=== PATIENT | female | born 1950 | race Caucasian/White ===

== ENCOUNTER 2019-03-12 09:47 | Inpatient (IN) | payer BC, OTHER ==
[2019-03-12 10:15] VITALS: BMI 32.8
[2019-03-12] MEDS ORDERED: SODIUM CHLORIDE 1,000 ML IV STA (10:37)
[2019-03-12 11:11] LABS: VENOUS PC02 46.8 mmHg (38-52); VENOUS PH 7.39 (7.31-7.41)
[2019-03-12 11:14] LABS: VENOUS PO2 < 49 mmHg (28-48)
--- NOTE | 2019-03-12 11:15 | PDOC ---
Documentation entered by Servando Styles SCRIBE, acting as scribe for Hu Reynoso MD. Hu Reynoso MD: This documentation has been prepared by the Jensen de jesus Daniel, SCRIBE, under my direction and personally reviewed by me in its entirety. I confirm that the documentation accurately reflects all work, treatment, procedures, and medical decision making performed by me. History of Present Illness - General Stated Complaint: Lightheaded History Source: Patient, Spouse Exam Limitations: No Limitations - History of Present Illness Initial Comments: 03/12/19 10:42 The patient is a 68 year old female with a past medical history of diabetes and HTN here today for evaluation of dizziness, altered mental status, incontinence , and generalized weakness. The patients reports that the patient began to feel room spinning dizziness yesterday and states that it is positional and worse with standing and better with lying down. He also notes that the patient has had trouble standing due to bilateral leg weakness. He also reports that the patient fell from sitting yesterday morning without loss of consciousness or head strike. notes seeing the patients PCP and a specialist yesterdat who gave her bystolic because her BP was high. He also notes that the patient has been nauseous and vomited 5-6 times between yesterday and today that was yellow in color. He reports at baseline the pt is independent in her ADLs, oriented, alert but she has not been herself since yesterday. SHe has no hx similar sxs. Patient denies headache. Denies fever, chills. Denies chest pain, shortness of breath. Denies diarrhea, abdominal pain, LE edema, urinary sxs, rash. Denies back pain, stiff neck PCP: Dr. Corley NIH Stroke Scale - Last Known Well Date/Time & Onset Date Last Known Well: 03/10/19 Time Last Known Well: 23:00 - Initial Evaluation Level of consciousness: Not alert, but arousable with minimal stimulation Ask patient the month and their age: Answers both correctly Ask patient to open & close eyes; make fist and let go: Obeys one correctly Best gaze (horizontal eye movement): Normal Visual field testing: No visual field loss Facial paresis (Show teeth/raise eyebrows/close eyes tight): Normal symmetrical movement Motor Function: Left Arm: Untestable (Joint fused orlimb amputated), explain: ( Pt not cooperative) Motor Function: Right Arm: Normal (extends arm 90 (or 45) degrees for 10 seconds without drift Motor Function: Left Leg: Untestable (Joint fused or limb amputated), explain: (Pt not cooperative) Motor Function: Right Leg: Normal (extends leg 30 degrees for 5 seconds without drift) Limb Ataxia: Untestable (Joint fused or limb amputated), explain: (Pt not cooperative) Sensory(Use pinprick test arms,legs,trunk,face/side to side): Normal Best language (Describe picture, name items, read sentences): No Aphasia Dysarthria (read several words): Normal articulation Extinction and Inattention: No abnormality - Total Score NIH Stroke Scale Score: 2 Past History - Past Medical History Allergies/Adverse Reactions: Allergies Allergy/AdvReac Type Severity Reaction Status Date / Time No Known Allergies Allergy Verified 03/12/19 11:13 Home Medications: Ambulatory Orders Aspirin [ASA -] 81 mg PO DAILY 03/12/19 Glimepiride 4 mg PO BID 03/12/19 Lisinopril 5 mg PO DAILY 03/12/19 Metformin HCl [Glucophage] 500 mg PO DAILY 03/12/19 Nebivolol HCl [Bystolic] 5 mg PO DAILY 03/12/19 Sitagliptin Phos/Metformin HCl [Janumet 50-500 mg Tablet] 1 each PO DAILY Review of Systems - Review of Systems Able to Perform ROS?: Yes Comments:: 03/12/19 10:42 GENERAL/CONSTITUTIONAL: No fever or chills. HEAD, EYES, EARS, NOSE AND THROAT: No change in vision. No ear pain or discharge. No sore throat. GASTROINTESTINAL: +nausea. +vomiting. No diarrhea or constipation. GENITOURINARY: No dysuria, frequency, or change in urination. CARDIOVASCULAR: No chest pain or shortness of breath. RESPIRATORY: No cough, wheezing, or hemoptysis. MUSCULOSKELETAL: No joint or muscle swelling or pain. No neck or back pain. SKIN: No rash NEUROLOGIC: +room spinning dizziness. +bilateral leg weakness. No headache, loss of consciousness, or change in sensation. ENDOCRINE: No increased thirst. No abnormal weight change. HEMATOLOGIC/LYMPHATIC: No anemia, easy bleeding, or history of blood clots. ALLERGIC/IMMUNOLOGIC: No hives or skin allergy. *Physical Exam - Vital Signs Last Vital Signs Temp Pulse Resp BP Pulse Ox 100.5 F H 88 18 199/111 H 94 L 03/12/19 09:50 03/12/19 09:50 03/12/19 09:50 03/12/19 09:50 03/12/19 10:05 - Physical Exam Comments: 03/12/19 10:43 GENERAL: Awake, oriented to name, states year is "19" and location is [facility]. In no acute distress HEAD: No signs of trauma EYES: PERRLA, EOMI, sclera anicteric, conjunctiva clear ENT: Auricles normal inspection, hearing grossly normal, nares patent, oropharynx clear without exudates. Moist mucosa NECK: Normal ROM, supple, no lymphadenopathy, JVD, or masses LUNGS: Breath sounds equal, clear to auscultation bilaterally. No wheezes, and no crackles HEART: Regular rate and rhythm, normal S1 and S2, no murmurs, rubs or gallops ABDOMEN: Soft, nontender, normoactive bowel sounds. No guarding, no rebound. No masses : rectal 100.5, no bleeding EXTREMITIES: Normal range of motion, no edema.No cords, erythema, or tenderness. WWP distally. BACK: No midline spinal tenderness in cervical/thoracic/lumbar region NEUROLOGICAL: +appears confused. Normal speech, cranial nerves intact, not cooperative with neuro exam, +squeezes right hand when asked to squeeze left hand, unable to test strength or sensation. Gait deferred SKIN: +UE skin mottling Heart Score/ECG Review #1 03/12/19 11:11 Twelve-lead EKG was performed and reviewed by me. Normal sinus rhythm, rate 88. Normal axis. No ST elevations or T wave inversions. ED Treatment Course - LABORATORY CBC & Chemistry Diagram: 03/12/19 10:50 03/12/19 10:50 - ADDITIONAL ORDERS Additional order review: Laboratory Results 03/12/19 10:38 POC Glucometer 280 03/12/19 10:38 POC Glucometer 280 - RADIOLOGY Radiology Studies Ordered: Category Date Time Status CERVICAL SPINE CT W/O CONTR [CT] Stat CT Scan 03/12/19 10:[address] WITHOUT CONTRAST [CT] Stat CT Scan 03/12/19 10:37 Ordered CHEST X-RAY PORTABLE* [RAD] Stat Radiology 03/12/19 10:36 Ordered Medical Decision Making - Medical Decision Making 03/12/19 11:11 68-year-old female with a history of hypertension and diabetes presents the emergency department with altered mental status, room spinning dizziness for 2 days. Patient also had a fall yesterday morning. Vitals remarkable for fever to 100.5, elevated BP We will initiate a broad work-up for altered mental status including infectious versus neurologic versus metabolic versus ischemic pathologies. In light of fall yesterday, will also initiate a trauma work-up including CT head and CT cervical spine. Patient's fingerstick is 384, DKA vs non AG hyperglycemia? Plan: labs UA CTH/c-spine CXR IVF tylenol low threshold for empiric abx cvg anticipate admission 03/12/19 11:55 UA consistent with UTI. Patient also with lactic of 2.6. As such patient covered empirically with vancomycin and Zosyn. She is also receiving 1 L of fluids, and hemoglobin is elevated consistent with likely dehydration however, given unknown cardiac history will reassess fluid status after first liter so as not to fluid overload patient. Glucose is elevated, however patient does not have an anion gap. Remaining work-up is pending. 03/12/19 13:07 CT head with possible chronic right frontal infarct. CT C-spine negative for any traumatic injury. Remaining work-up thus far is unremarkable. Concern for acute stroke versus recrudescence of old stroke in the setting of a UTI. Case has been discussed with Dr. fran mccormick who recommends MRI noncontrast , aspirin 325 mg, and Lipitor 80 mg. Hospitalist has been paged at this time for admission, awaiting callback. 03/12/19 13:20 Case has been discussed with Dr. Valencia, patient accepted for admission. Case discussed in detail with admitting physician including history, physical exam and ancillary studies. Admitting physician has assumed care for the patient, will follow all pending diagnostics and will complete the evaluation and treatment. Discharge - Discharge Information Problems reviewed: Yes Clinical Impression/Diagnosis: UTI (urinary tract infection), Altered mental status Condition: Stable - Follow up/Referral Referrals: Roly Saha [Primary Care Provider] - - Patient Discharge Instructions - Post Discharge Activity
[2019-03-12] MEDS ORDERED: ACETAMINOPHEN INJECTION 100 ML IVPB ONE ×2 (11:16→16:22)
[2019-03-12] MEDS ORDERED: ACETAMINOPHEN 1000 MG/100 ML VIAL (NON FORMULARY) IVPB ONE (11:16)
[2019-03-12 11:17] LABS: BASO % 0.3 % (0-2.0); EOS % 0.1 % (0-4.5); HEMATOCRIT 46.9 % (32.4-45.2); HEMOGLOBIN 15.8 GM/dL (10.7-15.3); LYMPH % 10.7 % (8-40); MCH 29.7 pg (25.7-33.7); MCHC 33.6 g/dl (32.0-36.0); MEAN CELL VOLUME 88.3 fl (80-96); MEAN PLT VOLUME 8.6 fl (7.5-11.1); MONO % 3.6 % (3.8-10.2); NEUT % 85.3 % (42.8-82.8); PLATELET COUNT 318 K/MM3 (134-434); RBC 5.31 M/mm3 (3.60-5.2); RDW 13.2 % (11.6-15.6)
[2019-03-12 11:19] LABS: EPI CELLS 0 /HPF (0-5/HPF); HYALINE CASTS 0 /lpf (0-8); URINE APPEARANCE CLEAR; URINE BACTERIA 4559.5 /hpf (NEGATIVE); URINE BILIRUBIN NEGATIVE (NEGATIVE); URINE COLOR YELLOW; URINE GLUCOSE (UA) 3+ (NEGATIVE); URINE KETONE 1+ (NEGATIVE); URINE LEUK ESTERASE NEGATIVE (NEGATIVE); URINE NITRITE NEGATIVE (NEGATIVE); URINE PROTEIN 2+ (NEGATIVE); URINE RBC 1 /hpf (0-4); URINE UROBILINOGEN 0.2 mg/dL (0.2-1.0)
[2019-03-12 11:42] LABS: ALBUMIN 4.6 g/dl (3.4-5.0); BILIRUBIN,TOTAL 0.6 mg/dL (0.2-1); BLOOD UREA NITROGEN 14.5 mg/dL (7-18); CALCIUM 9.8 mg/dL (8.5-10.1); CREATININE 0.9 mg/dL (0.55-1.3); POTASSIUM 4.1 mmol/L (3.5-5.1); TOT PROT 9.3 g/dl (6.4-8.2)
[2019-03-12] MEDS ORDERED: VANCOMYCIN 1,000 MG in DEXTROSE 5%-WATER - 250 ML IVPB ONE (11:53)
[2019-03-12] MEDS ORDERED: PIPERACILLIN/TAZOB 4.5 GM 4.5 GM in DEXTROSE 5%-WATER - 100 ML IVPB ONE (11:53)
[2019-03-12] MEDS ORDERED: VANCOMYCIN 1 GRAM (PRE-DOCKED) 1,000 MG/250 ML BAG IVPB ONE (12:06)
[2019-03-12] MEDS ORDERED: PIPERACILLIN/TAZOB 3.375 GM 3.375 GM/50 ML BAG IVPB ONE (12:06)
[2019-03-12] MEDS ORDERED: PIPERACILLIN/TAZOB 4.5 GM 4.5 GM/100 ML BAG IVPB ONE (12:10)
[2019-03-12 12:22] LABS: INR 0.99 (0.83-1.09)
[2019-03-12 12:35] LABS: PROTHROMBIN TIME (PATIENT) 11.7 SEC (9.7-13.0)
--- NOTE | 2019-03-12 12:46 | EKG ---
Test Reason : Blood Pressure : / mmHG Vent. Rate : 088 BPM Atrial Rate : 088 BPM P-R Int : 160 ms QRS Dur : 086 ms QT Int : 352 ms P-R-T Axes : 068 005 049 degrees QTc Int : 425 ms POOR DATA QUALITY, INTERPRETATION MAY BE ADVERSELY AFFECTED NORMAL SINUS RHYTHM POSSIBLE LEFT ATRIAL ENLARGEMENT SEPTAL INFARCT , AGE UNDETERMINED ABNORMAL ECG NO PREVIOUS ECGS AVAILABLE Confirmed by MOISÉS COWAN, STEPH ([id number]) on 03/12/2019 12:46:41 PM Referred By: Confirmed By:STEPH CURIEL MD
[2019-03-12] MEDS ORDERED: ATORVASTATIN CA 80 MG TABLET (FP) PO ONE (13:10)
[2019-03-12] MEDS ORDERED: ASPIRIN 325 MG TABLET PO ONE (13:10)
[2019-03-12] MEDS ORDERED: ASPIRIN 325 MG ENTERIC COATED TABLET (FP) ONE (13:39)
[2019-03-12] MEDS ORDERED: ATORVASTATIN CA 80 MG TABLET (FP) ONE (13:39)
--- NOTE | 2019-03-12 17:30 | HP ---
Admitting History and Physical - Primary Care Physician PCP: Pedro Valencia - Admission History of Present Illness: 68 year old female with a past medical history of diabetes and HTN here today for evaluation of dizziness, altered mental status, incontinence, and generalized weakness. The patients reports that the patient began to feel room spinning dizziness yesterday and states that it is positional and worse with standing and better with lying down. He also notes that the patient has had trouble standing due to bilateral leg weakness. He also reports that the patient fell from sitting yesterday morning without loss of consciousness or head strike. notes seeing the patients PCP and a specialist yesterdat who gave her bystolic because her BP was high. He also notes that the patient has been nauseous and vomited 5-6 times between yesterday and today that was yellow in color. He reports at baseline the pt is independent in her ADLs, oriented, alert but she has not been herself since yesterday. SHe has no hx similar sxs. - Smoking History Smoking history: Never smoked Have you smoked in the past 12 months: No Home Medications - Allergies Allergies/Adverse Reactions: Allergies Allergy/AdvReac Type Severity Reaction Status Date / Time No Known Allergies Allergy Verified 03/12/19 11:13 - Home Medications Home Medications: Ambulatory Orders Aspirin [ASA -] 81 mg PO DAILY 03/12/19 Glimepiride 4 mg PO BID 03/12/19 Lisinopril 5 mg PO DAILY 03/12/19 Metformin HCl [Glucophage] 500 mg PO DAILY 03/12/19 Sitagliptin Phos/Metformin HCl [Janumet 50-500 mg Tablet] 1 each PO DAILY Cephalexin Monohydrate [Keflex -] 500 mg PO TID #24 capsule 03/14/19 Metoprolol Succinate [Toprol XL -] 25 mg PO DAILY #30 tab.sr.24h 03/15/19 Physical Examination Vital Signs: Vital Signs Temperature 99.1 F 03/12/19 17:14 Pulse Rate 81 03/12/19 17:14 Respiratory Rate 22 H 03/12/19 17:14 Blood Pressure 122/78 03/12/19 17:14 O2 Sat by Pulse Oximetry (%) 97 03/12/19 17:14 Constitutional: Yes: No Distress HENT: Yes: Atraumatic Neck: Yes: Supple Cardiovascular: Yes: Regular Rate and Rhythm Respiratory: Yes: CTA Bilaterally Gastrointestinal: Yes: Normal Bowel Sounds Extremities: Yes: WNL Edema: No Neurological: Yes: Alert Labs: CBC, BMP 03/12/19 10:50 03/12/19 10:50 Imaging - Results X-ray: Report Reviewed Cat Scan: Report Reviewed Ultrasound: Report Reviewed Problem List - Problems (1) Altered mental status Assessment/Plan: much improved Code(s): R41.82 - ALTERED MENTAL STATUS, UNSPECIFIED (2) UTI (urinary tract infection) Assessment/Plan: on abx Code(s): N39.0 - URINARY TRACT INFECTION, SITE NOT SPECIFIED (3) Type 2 diabetes mellitus Assessment/Plan: monitor on meds Code(s): E11.9 - TYPE 2 DIABETES MELLITUS WITHOUT COMPLICATIONS Qualifiers: Diabetes mellitus halfway insulin use: without emt intermediate use Chronic kidney disease stage: stage 2 (mild) (4) Vertigo Assessment/Plan: will get neuro consult mri PT eval Code(s): R42 - DIZZINESS AND GIDDINESS Assessment/Plan Laboratory Tests 03/12/19 03/12/19 03/12/19 10:38 10:50 10:50 WBC RBC Hgb Hct MCV MCH MCHC RDW Plt Count MPV Absolute Neuts (auto) Neutrophils % Lymphocytes % Monocytes % Eosinophils % Basophils % Nucleated RBC % PT with INR 11.70 INR 0.99 PTT (Actin FS) 26.0 VBG pH POC VBG pCO2 POC VBG pO2 VBG HCO3 VBG O2 Sat (Farhat) VBG Base Excess Sodium Potassium Chloride Carbon Dioxide Anion Gap BUN Creatinine Est GFR (CKD-EPI)AfAm Est GFR (CKD-EPI)NonAf POC Glucometer 280 Random Glucose Lactic Acid Calcium Total Bilirubin AST ALT Alkaline Phosphatase Creatine Kinase 52 Troponin I < 0.02 Total Protein Albumin Beta-Hydroxybutyrate Urine Color Urine Appearance Urine pH Ur Specific [place] Urine Protein Urine Glucose (UA) Urine Ketones Urine Blood Urine Nitrite Urine Bilirubin Urine Urobilinogen Ur Leukocyte Esterase Urine RBC (Auto) Urine Casts (Auto) U Epithel Cells (Auto) Urine Bacteria (Auto) 03/12/19 03/12/19 03/12/19 10:50 10:50 10:50 WBC 8.0 RBC 5.31 H Hgb 15.8 H Hct 46.9 H MCV 88.3 MCH 29.7 MCHC 33.6 RDW 13.2 Plt Count 318 MPV 8.6 Absolute Neuts (auto) 6.8 Neutrophils % 85.3 H Lymphocytes % 10.7 Monocytes % 3.6 L Eosinophils % 0.1 Basophils % 0.3 Nucleated RBC % 0 PT with INR INR PTT (Actin FS) VBG pH POC VBG pCO2 POC VBG pO2 VBG HCO3 VBG O2 Sat (Farhat) VBG Base Excess Sodium 132 L Potassium 4.1 Chloride 94 L Carbon Dioxide 30 Anion Gap 8 BUN 14.5 Creatinine 0.9 Est GFR (CKD-EPI)AfAm 75.61 Est GFR (CKD-EPI)NonAf 65.24 POC Glucometer Random Glucose 314 H Lactic Acid Calcium 9.8 Total Bilirubin 0.6 AST 20 ALT 41 Alkaline Phosphatase 79 Creatine Kinase Troponin I Total Protein 9.3 H Albumin 4.6 Beta-Hydroxybutyrate 8.3 H Urine Color Urine Appearance Urine pH Ur Specific [place] Urine Protein Urine Glucose (UA) Urine Ketones Urine Blood Urine Nitrite Urine Bilirubin Urine Urobilinogen Ur Leukocyte Esterase Urine RBC (Auto) Urine Casts (Auto) U Epithel Cells (Auto) Urine Bacteria (Auto) 03/12/19 03/12/19 03/12/19 10:50 10:50 11:02 WBC RBC Hgb Hct MCV MCH MCHC RDW Plt Count MPV Absolute Neuts (auto) Neutrophils % Lymphocytes % Monocytes % Eosinophils % Basophils % Nucleated RBC % PT with INR INR PTT (Actin FS) VBG pH 7.39 POC VBG pCO2 46.8 POC VBG pO2 < 49 H VBG HCO3 27.5 VBG O2 Sat (Farhat) 42.2 L VBG Base Excess 2.2 H Sodium Potassium Chloride Carbon Dioxide Anion Gap BUN Creatinine Est GFR (CKD-EPI)AfAm Est GFR (CKD-EPI)NonAf POC Glucometer Random Glucose Lactic Acid 2.6 H* Calcium Total Bilirubin AST ALT Alkaline Phosphatase Creatine Kinase Troponin I Total Protein Albumin Beta-Hydroxybutyrate Urine Color Yellow Urine Appearance Clear Urine pH 8.0 Ur Specific [place] 1.019 Urine Protein 2+ H Urine Glucose (UA) 3+ H Urine Ketones 1+ H Urine Blood Negative Urine Nitrite Negative Urine Bilirubin Negative Urine Urobilinogen 0.2 Ur Leukocyte Esterase Negative Urine RBC (Auto) 1 Urine Casts (Auto) 0 U Epithel Cells (Auto) 0 Urine Bacteria (Auto) 4559.5 03/12/19 14:35 WBC RBC Hgb Hct MCV MCH MCHC RDW Plt Count MPV Absolute Neuts (auto) Neutrophils % Lymphocytes % Monocytes % Eosinophils % Basophils % Nucleated RBC % PT with INR INR PTT (Actin FS) VBG pH POC VBG pCO2 POC VBG pO2 VBG HCO3 VBG O2 Sat (Farhat) VBG Base Excess Sodium Potassium Chloride Carbon Dioxide Anion Gap BUN Creatinine Est GFR (CKD-EPI)AfAm Est GFR (CKD-EPI)NonAf POC Glucometer Random Glucose Lactic Acid 2.3 H* Calcium Total Bilirubin AST ALT Alkaline Phosphatase Creatine Kinase Troponin I Total Protein Albumin Beta-Hydroxybutyrate Urine Color Urine Appearance Urine pH Ur Specific [place] Urine Protein Urine Glucose (UA) Urine Ketones Urine Blood Urine Nitrite Urine Bilirubin Urine Urobilinogen Ur Leukocyte Esterase Urine RBC (Auto) Urine Casts (Auto) U Epithel Cells (Auto) Urine Bacteria (Auto) Active Medications Generic Name Dose Route Start Last Admin Trade Name Freq PRN Reason Stop Dose Admin Aspirin 81 mg 03/13/19 10:00 Asa - PO DAILY [facility] Glimepiride 4 mg 03/13/19 07:00 Amaryl - PO DAILY@0700 [facility] Heparin Sodium (Porcine) 5,000 unit 03/12/19 22:00 Heparin - SQ BID [facility] Ceftriaxone Sodium 2 gm/ 100 mls @ 100 mls/hr 03/12/19 18:15 03/12/19 19:09 Dextrose IVPB 100 mls/hr DAILY [facility] Administration Protocol Lisinopril 5 mg 03/13/19 10:00 Prinivil PO DAILY [facility] Metformin HCl 500 mg 03/13/19 07:00 Glucophage - PO DAILY@0700 [facility] Sitagliptin Phosphate 50 mg 03/13/19 07:00 Januvia - PO DAILY@0700 [facility] WAS NOT ABLE TO TOLERATE MRI
--- NOTE | 2019-03-12 18:03 | PN ---
Progress Note (short form) - Note Progress Note: ID consult dictated 68 yo female with NIDDM presented to ED with dizziness from home 2 days ago she had elevated BP at home sbp over 200 she fell at home b/c she was dizzy yeterday she went to see her PMD Dr Corley, also saw a tire trucker her lisinopril was doubled and she was prescribed bystolic she also vomited 3 to 4 times yesterday this am she was dizzy and could not walk and was brought to ed no history of fevers or chills at home no travel lives in [place] with her has not had any sick contacts, no recent hospitalizations no recent antibiotics no history of UTI asked to see for fever that occurred in ED patient is alert and oriented to person and date, she thinks she is at [facility]- they spoke about going there this am otherwise following commands and answering questions appropriately she is hungry and wants to eat no headache fever of unclear source with lactic acidosis dizziness with acclerated HTN- r/o cva received vanco/zosyn in ED will continue rocephin scheduled for MRI neurology to see niddm- with elevated glucose per PMD htn- management per pmd f/u cultures Problem List - Problems (1) Dizziness Code(s): R42 - DIZZINESS AND GIDDINESS (2) Fever Code(s): R50.9 - FEVER, UNSPECIFIED (3) Lactic acidosis Code(s): E87.2 - ACIDOSIS (4) UTI (urinary tract infection) Code(s): N39.0 - URINARY TRACT INFECTION, SITE NOT SPECIFIED (5) Hypertensive urgency Code(s): I16.0 - HYPERTENSIVE URGENCY (6) Hyperglycemia due to type 2 diabetes mellitus Code(s): E11.65 - TYPE 2 DIABETES MELLITUS WITH HYPERGLYCEMIA
[2019-03-12] MEDS ORDERED: DEXTROSE 5%-WATER 100 ML IVPB ONE (19:02)
[2019-03-12] MEDS: CEFTRIAXONE 2 GM in DEXTROSE 5%-WATER 100 ML IVPB SCH (19:09)
--- NOTE | 2019-03-12 19:31 | CONS ---
DATE OF CONSULTATION: 03/12/2019 REQUESTED BY: Hospitalist Service This is a 68-year-old female with a past medical history of [id number]-boowrjrow diabetes. This is her first admission to [facility]. She was brought to the emergency room this morning at 10 o'clock by ambulance. Two days ago, her noted that she had very high blood pressure at home. He says that on the monitor, her systolic blood pressure was over 200. She was feeling dizzy with the room spinning and had generalized weakness. He took her to see her doctor yesterday, Dr. Corley on [facility], and she also saw her caser up. Reports that her lisinopril was increased and that she was started on Bystolic. She also had nausea yesterday with vomiting three to four times. There is no history of fever at home, no dysuria, no prior history of urinary tract infection. She has not been sick in the recent past. There is no history of recent hospitalizations. There has been no travel. They live here in [place]. ALLERGIES: She has no known drug allergies. CURRENT MEDICATIONS: Aspirin, glimepiride, lisinopril, metformin, Janumet. She was just started on Bystolic which she states she did not take today. PAST MEDICAL HISTORY: Notable for hypertension and sve-rxbkjtq-sxfwciubs diabetes. PAST SURGICAL HISTORY: Notable for hysterectomy and a hernia repair. SOCIAL HISTORY: No history of cigarettes, alcohol or substance use. She is . She lives with her . She has three daughters and multiple grandchildren. She came [place] at age 20. REVIEW OF SYSTEMS: She denies headaches. She is hungry and is asking to eat. She is appropriate and able to follow commands. She has no shortness of breath. PHYSICAL EXAMINATION: VITALS: Current temperature is 99.1, T-max was 101.8. Her blood pressure is 122/78, respiratory rate is 22, oxygen saturation 97% on room air. HEENT: Normocephalic. Eyes are anicteric. She has dry oral mucosa. NECK: Supple. She has no meningeal signs. LUNGS: Clear to auscultation. HEART: Regular rate and rhythm. ABDOMEN: Soft, nontender. She has no CVA or suprapubic tenderness. EXTREMITIES: No edema. LABS: Notable for a white count of 8, hemoglobin of 15.8, platelets of 318,000. Her BUN and creatinine are 14 and 0.9, normal LFTs with a lactic of 2.6. A urinalysis 4500 bacteria but is leukocyte esterase negative. No micro was done. She has 2+ protein, 3+ glucose, 1+ ketones. Urine and blood cultures were sent. She had a head CT and a CT of the cervical spine without any acute disease. A chest x-ray showed no infiltrate. HOSPITAL COURSE: In the ER, she was given IV fluids. She had blood cultures sent and she was given a dose of vancomycin and Zosyn when she had a fever of 101.8. IN SUMMARY: 1. This is a 68-year-old woman with fever of unclear source with lactic acidosis, dizziness with accelerate hypertension; rule out CVA. She received vancomycin and Zosyn in the ER. We will continue Rocephin as she has no risk factors for MRSA or pseudomonas at this time. She is scheduled for an MRI of her head and neurology is planning to see her. 2. Ees-ahguyts-ltbugqkub diabetes with elevated glucose; management per her PMD. 3. Hypertension. Management per PMD. 4. We will follow up cultures. 5. Further recommendations to follow. LESLY MONTALVO M.D. [id number]
[2019-03-12] MEDS ORDERED: GLIMEPIRIDE 4 MG TABLET (FP) PO SCH (22:00)
[2019-03-12] MEDS: HEPARIN NA (PORCINE) 5,000 UNITS/ML 1ML VIAL SQ SCH (22:17)
--- NOTE | 2019-03-12 22:46 | CON.NEURO ---
Consult Consult Specialty:: NEUROLOGY-JOSEFINA COWAN - History of Present Illness History of Present Illness: 68 year old female with a past medical history of diabetes and HTN here today for evaluation of dizziness, altered mental status, incontinence, and generalized weakness. The patients reports that the patient began to feel room spinning dizziness yesterday and states that it is positional and worse with standing and better with lying down. He also notes that the patient has had trouble standing due to bilateral leg weakness. He also reports that the patient fell from sitting yesterday morning without loss of consciousness or head strike. notes seeing the patients PCP and a specialist yesterdat who gave her bystolic because her BP was high. He also notes that the patient has been nauseous and vomited 5-6 times between yesterday and today that was yellow in color. He reports at baseline the pt is independent in her ADLs, oriented, alert but she has not been herself since yesterday. SHe has no hx similar sxs. -Reports she has no dizziness(describes it as vertigo), denies weakness in both legs, able to ambulate to toilet. - Smoking History Smoking history: Never smoked Have you smoked in the past 12 months: No Home Medications - Allergies Allergies/Adverse Reactions: Allergies Allergy/AdvReac Type Severity Reaction Status Date / Time No Known Allergies Allergy Verified 03/12/19 11:13 - Home Medications Home Medications: Ambulatory Orders Aspirin [ASA -] 81 mg PO DAILY 03/12/19 Glimepiride 4 mg PO BID 03/12/19 Lisinopril 5 mg PO DAILY 03/12/19 Metformin HCl [Glucophage] 500 mg PO DAILY 03/12/19 Nebivolol HCl [Bystolic] 5 mg PO DAILY 03/12/19 Sitagliptin Phos/Metformin HCl [Janumet 50-500 mg Tablet] 1 each PO DAILY Physical Exam-Neuro Vital Signs: Vital Signs Temperature 99.1 F 03/12/19 17:14 Pulse Rate 81 03/12/19 17:14 Respiratory Rate 22 H 03/12/19 17:14 Blood Pressure 122/78 03/12/19 17:14 O2 Sat by Pulse Oximetry (%) 97 03/12/19 17:14 Labs: CBC, BMP 03/12/19 10:50 03/12/19 10:50 INR, PTT INR 0.99 (0.83-1.09) 03/12/19 10:50 - Neuro Exam DTR's: 1+ Left Achilles, 1+ Right Achilles (bilat knees-2+), 2+ Left Bicep, 2+ Right Bicep, 2+ Left Tricep, 2+ Right Tricep, 2+ Left Brachioradialis, 2+ Right Brachioradialis Motor Strength: 4/5: Right Arm, Left Leg (eFFORT RELATED WEAKNESS LIKELY), 5/5: Left Arm, Right Arm Gait: Other (SLOW BUT STEADY) Imaging - Results Cat Scan: Report Reviewed (small right frontal subcort. infarct) Assessment/Plan EPISODIC VERTIGO AND ATAXIA, BOTH RESOLVED, SHE HAS A SMALL RIGHT SUBCORT. INFARCT UPON IMAGING. LIKLEY PERIPHERAL VERTIGO BUT CANNOT EXCLUDE POST.CIRC. EVENT. WOULD ATTEMPT MRI AGAIN WITH LORAZEPAM. CAROTID DOPPLER STUDY.ASA 81MG DAILY
[2019-03-12] MEDS ORDERED: LORazepam 1 MG TABLET PO ONE (22:51)
[2019-03-13] MEDS: sitaGLIPtin PHOSPHATE 50 MG TABLET PO SCH (06:53)
[2019-03-13] MEDS: GLIMEPIRIDE 4 MG TABLET (FP) PO SCH (06:53)
[2019-03-13] MEDS: metFORMIN HCL 500 MG TABLET (FP) PO SCH (06:53)
[2019-03-13 07:38] LABS: BASO % 0.5 % (0-2.0); EOS % 0.8 % (0-4.5); HEMOGLOBIN 14.2 GM/dL (10.7-15.3); LYMPH % 34.8 % (8-40); MCH 30.2 pg (25.7-33.7); MCHC 34.6 g/dl (32.0-36.0); MEAN CELL VOLUME 87.2 fl (80-96); MEAN PLT VOLUME 8.7 fl (7.5-11.1); MONO % 11.7 % (3.8-10.2); NEUT % 52.2 % (42.8-82.8); PLATELET COUNT 295 K/MM3 (134-434); RDW 13.2 % (11.6-15.6); WHITE BLOOD COUNT 8.9 K/mm3 (4.0-10.0)
[2019-03-13 08:36] LABS: ALBUMIN 3.8 g/dl (3.4-5.0); BILIRUBIN,TOTAL 0.6 mg/dL (0.2-1); BLOOD UREA NITROGEN 23.5 mg/dL (7-18); CALCIUM 9.2 mg/dL (8.5-10.1); CREATININE 1.1 mg/dL (0.55-1.3); POTASSIUM 3.6 mmol/L (3.5-5.1); TOT PROT 7.3 g/dl (6.4-8.2)
[2019-03-13] MEDS ORDERED: DEXTROSE 5%-WATER 100 ML IVPB ONE (09:19)
--- NOTE | 2019-03-13 09:51 | CON.CARD ---
Consult Consult Specialty:: Cardiology Referred by:: Pedro Valencia MD Reason for Consultation:: Dizziness, HTN urgency - History of Present Illness Chief Complaint: Dizziness History of Present Illness: 68 yo female with NIDDM presented to ED with dizziness from home, 2 days ago she had elevated BP at home sbp over 200, she fell at home b/c she was positional dizziness with room spinning, nausea, emesis w/o hearing loss or tinnitus, incontinence and bilateral leg weakness, she went to see her PMD Dr Corley of [facility], also saw a audit manager Dr. Ledezma, her lisinopril was doubled and she was prescribed bystolic. She was dizzy and could not walk and was brought to ed. Brain MRI degraded due to motion artifacts due to claustrophobia. - History Source History Provided By: Patient, Family Member Limitations to Obtaining History: No Limitations - Alcohol/Substance Use Hx Alcohol Use: No - Smoking History Smoking history: Never smoked Have you smoked in the past 12 months: No Home Medications - Allergies Allergies/Adverse Reactions: Allergies Allergy/AdvReac Type Severity Reaction Status Date / Time No Known Allergies Allergy Verified 03/12/19 11:13 - Home Medications Home Medications: Ambulatory Orders Aspirin [ASA -] 81 mg PO DAILY 03/12/19 Glimepiride 4 mg PO BID 03/12/19 Lisinopril 5 mg PO DAILY 03/12/19 Metformin HCl [Glucophage] 500 mg PO DAILY 03/12/19 Nebivolol HCl [Bystolic] 5 mg PO DAILY 03/12/19 Sitagliptin Phos/Metformin HCl [Janumet 50-500 mg Tablet] 1 each PO DAILY Review of Systems - Review of Systems Constitutional: reports: Weakness Gastrointestinal: reports: Nausea, Vomiting Neurological: reports: Dizziness Vital Signs: Vital Signs Temperature 98.4 F 03/13/19 06:00 Pulse Rate 68 03/13/19 06:00 Respiratory Rate 20 03/13/19 06:00 Blood Pressure 112/62 03/13/19 06:00 O2 Sat by Pulse Oximetry (%) 95 03/13/19 02:23 Constitutional: Yes: No Distress, Calm Neck: Yes: Supple Respiratory: Yes: Regular, CTA Bilaterally Gastrointestinal: Yes: Soft, Hypoactive Bowel Sounds Cardiovascular: Yes: Regular Rate and Rhythm JVD: No Carotid Bruit: No Heart Sounds: Yes: S1, S2 Edema: No - Other Data Labs, Other Data: CBC, BMP 03/13/19 06:40 03/13/19 06:40 INR, PTT INR 0.99 (0.83-1.09) 03/12/19 10:50 Troponin, BNP 03/12/19 10:50 Troponin I < 0.02 Troponin, BNP 03/12/19 10:50 Troponin I < 0.02 Imaging - Results Chest X-ray: Report Reviewed (NAD) Cat Scan: Report Reviewed (Prob small chronic right frontal subcortical white matter infarct) Problem List - Problems (1) Vertigo Code(s): R42 - DIZZINESS AND GIDDINESS (2) Ataxia Code(s): R27.0 - ATAXIA, UNSPECIFIED (3) Hypertensive urgency Code(s): I16.0 - HYPERTENSIVE URGENCY (4) Type 2 diabetes mellitus Code(s): E11.9 - TYPE 2 DIABETES MELLITUS WITHOUT COMPLICATIONS Qualifiers: Diabetes mellitus fdc insulin use: without fdc use Chronic kidney disease stage: stage 2 (mild) (5) Microalbuminuria due to type 2 diabetes mellitus Code(s): E11.29 - TYPE 2 DIABETES MELLITUS W OTH DIABETIC KIDNEY COMPLICATION; R80.9 - PROTEINURIA, UNSPECIFIED (6) Glycosuria Code(s): R81 - GLYCOSURIA Assessment/Plan 03/12/2019 Cat Scan: Report Reviewed (small right frontal subcort. infarct) 1. Vertigo, ataxia, nausea and emesis suspect peripheral vestibulopathy, r/o posterior circulation stroke 2. Hypertensive urgency 3. Fever 4. Type 2 DM with microalbuminuria and glycosuria P:1. Repeat brain MRI with Ativan, f/u carotid US, carotid dopplers, echo, carbon paste mixer operator r/o PAF 2. Empiric abx per C&S 3. Continue ASA 81 qd, Lisinopril with uptitration as tolerated, check TSH, lipid panel, Ha1c 4. Thank you for consultative opportunity
[2019-03-13] MEDS ORDERED: PATIENT'S OWN MEDICATION (NON-FORMULARY) (Sitagliptin Phos/Metformin Hcl [Janumet 50-500 M PO SCH (10:00)
[2019-03-13] MEDS ORDERED: metFORMIN HCL 500 MG TABLET (FP) PO SCH (10:00)
[2019-03-13] MEDS: LISINOPRIL 5 MG TABLET (FP) PO SCH (10:03)
[2019-03-13] MEDS: HEPARIN NA (PORCINE) 5,000 UNITS/ML 1ML VIAL SQ SCH ×2 (10:03→22:07)
[2019-03-13] MEDS: ASPIRIN 81 MG CHEWABLE TABLETS PO SCH (10:03)
[2019-03-13] MEDS: CEFTRIAXONE 2 GM in DEXTROSE 5%-WATER 100 ML IVPB SCH (10:05)
--- NOTE | 2019-03-13 15:30 | PN ---
Progress Note (short form) - Note Progress Note: clinically improved no complaints sat up in chair eating well Vital Signs Period Temp Pulse Resp BP Sys/Kelley Pulse Ox Last 24 Hr 97.9 F-99.2 F 68-86 18-22 98-134/56-84 95-98 cor-rrr lungs clear abd soft,nt ext no edema CBC, BMP 03/13/19 06:40 03/13/19 06:40 Microbiology 03/12/19 10:50 Blood - Peripheral Venous Blood Culture - Preliminary NO GROWTH OBTAINED AFTER 24 HOURS, INCUBATION TO CONTINUE FOR 4 DAYS. 03/12/19 10:50 Blood - Peripheral Venous Blood Culture - Preliminary NO GROWTH OBTAINED AFTER 24 HOURS, INCUBATION TO CONTINUE FOR 4 DAYS. 03/12/19 11:02 Urine - Urine - Catheterized Urine Culture - Preliminary Lactose Fermenting Neg Bacilli a/p fever of unclear source with lactic acidosis- ?UTI-improved continue rocephin dizziness with acclerated HTN- r/o cva niddm- with elevated glucose per PMD htn- management per pmd f/u cultures d/w patient and at [facility]
--- NOTE | 2019-03-13 15:58 | ECHO ---
Name: TRINIDAD CASTANEDA Exam:Adult Echocardiogram Study Date: 03/13/2019 01:04 PM Age: 68 yrs Reason For Study: HTN URGENCY Height: 63 in Weight: 185 lb BSA: 1.9 m2 MMode/2D Measurements & Calculations IVSd: 0.85 cm Ao root diam: 3.5 cm LVIDd: 4.8 cm LA dimension: 2.7 cm LVIDs: 2.9 cm ACS: 1.8 cm LVPWd: 0.85 cm IVSs: 1.4 cm LVPWs: 1.1 cm EDV(Teich): 109.1 ml ESV(Teich): 32.4 ml Doppler Measurements & Calculations MV E max shira: 38.5 cm/sec Ao V2 max: 97.9 cm/sec MV A max shira: 80.2 cm/sec Ao max P.8 mmHg MV E/A: 0.48 Ao V2 mean: 73.3 cm/sec Ao mean P.4 mmHg Ao V2 VTI: 17.8 cm Med Peak E' Shira: 3.2 cm/sec Med E/e': 12.0 Lat Peak E' Shira: 6.0 cm/sec Lat E/e': 6.4 Left Ventricle The left ventricular size, thickness and function are normal. The left ventricular ejection fraction is normal. Ejection Fraction = 60-65%. The left ventricular wall motion is normal. Right Ventricle The right ventricle is normal in size and function. Atria Normal left and right atrial size and function. Mitral Valve There is no mitral regurgitation noted. Tricuspid Valve There is trace tricuspid regurgitation. There was insufficient TR detected to calculate RV systolic p ressure. Aortic Valve No hemodynamically significant valvular aortic stenosis. No aortic regurgitation is present. Pulmonic Valve There is no pulmonic valvular regurgitation. Great Vessels The aortic root is normal size. Pericardium/Pleura There is no pericardial effusion. Interpretation Summary The left ventricular size, thickness and function are normal The right ventricle is normal in size and function. There is trace tricuspid regurgitation. MD Luke Horvath 03/13/2019 03:57 PM
--- NOTE | 2019-03-13 16:21 | PN ---
Progress Note, Physician - Current Medication List Current Medications: Active Medications Aspirin (Asa -) 81 mg PO DAILY [facility] Last Admin: 03/13/19 10:03 Dose: 81 mg Glimepiride (Amaryl -) 4 mg PO DAILY@0700 [facility] Last Admin: 03/13/19 06:53 Dose: 4 mg Heparin Sodium (Porcine) (Heparin -) 5,000 unit SQ BID [facility] Last Admin: 03/13/19 10:03 Dose: 5,000 unit Ceftriaxone Sodium 2 gm/ (Dextrose) 100 mls @ 100 mls/hr IVPB DAILY [facility]; Protocol Last Admin: 03/13/19 10:05 Dose: 100 mls/hr Lisinopril (Prinivil) 5 mg PO DAILY [facility] Last Admin: 03/13/19 10:03 Dose: 5 mg Metformin HCl (Glucophage -) 500 mg PO DAILY@0700 [facility] Last Admin: 03/13/19 06:53 Dose: 500 mg Sitagliptin Phosphate (Januvia -) 50 mg PO DAILY@0700 [facility] Last Admin: 03/13/19 06:53 Dose: 50 mg - Objective Vital Signs: Vital Signs Temperature 98.8 F 03/13/19 15:23 Pulse Rate 82 03/13/19 15:23 Respiratory Rate 20 03/13/19 15:23 Blood Pressure 134/84 03/13/19 15:23 O2 Sat by Pulse Oximetry (%) 98 03/13/19 09:00 Constitutional: Yes: No Distress HENT: Yes: Atraumatic Neck: Yes: Supple Cardiovascular: Yes: Regular Rate and Rhythm Respiratory: Yes: CTA Bilaterally Gastrointestinal: Yes: Normal Bowel Sounds Extremities: Yes: WNL Edema: No Peripheral Pulses WNL: Yes Neurological: Yes: Alert, Oriented Labs: CBC, BMP 03/13/19 06:40 03/13/19 06:40 INR, PTT INR 0.99 (0.83-1.09) 03/12/19 10:50 Problem List - Problems (1) Altered mental status Assessment/Plan: resolved Code(s): R41.82 - ALTERED MENTAL STATUS, UNSPECIFIED (2) UTI (urinary tract infection) Assessment/Plan: on po abx now Code(s): N39.0 - URINARY TRACT INFECTION, SITE NOT SPECIFIED (3) CVA (cerebral vascular accident) Assessment/Plan: small R subcortical infarct Code(s): I63.9 - CEREBRAL INFARCTION, UNSPECIFIED
[2019-03-14] MEDS: sitaGLIPtin PHOSPHATE 50 MG TABLET PO SCH (06:17)
[2019-03-14] MEDS: metFORMIN HCL 500 MG TABLET (FP) PO SCH (06:17)
[2019-03-14] MEDS: GLIMEPIRIDE 4 MG TABLET (FP) PO SCH (06:17)
[2019-03-14 07:35] LABS: BLOOD UREA NITROGEN 33.7 mg/dL (7-18); CALCIUM 9.5 mg/dL (8.5-10.1); POTASSIUM 3.9 mmol/L (3.5-5.1)
[2019-03-14] MEDS ORDERED: DEXTROSE 5%-WATER 100 ML IVPB ONE (09:15)
[2019-03-14] MEDS: CEFTRIAXONE 2 GM in DEXTROSE 5%-WATER 100 ML IVPB SCH (09:32)
[2019-03-14] MEDS: HEPARIN NA (PORCINE) 5,000 UNITS/ML 1ML VIAL SQ SCH ×2 (09:32→22:20)
[2019-03-14] MEDS: ASPIRIN 81 MG CHEWABLE TABLETS PO SCH (09:32)
[2019-03-14] MEDS: LISINOPRIL 5 MG TABLET (FP) PO SCH (09:32)
--- NOTE | 2019-03-14 14:43 | PN ---
Progress Note (short form) - Note Progress Note: still some dizziness afebrile Vital Signs Period Temp Pulse Resp BP Sys/Kelley Pulse Ox Last 24 Hr 97.7 F-98.8 F 75-89 18-20 118-134/49-84 95-97 cor-rrr lungs clear abd soft,nt ext no edema CBC, BMP 03/13/19 06:40 03/14/19 06:05 Microbiology 03/12/19 11:02 Urine - Urine - Catheterized Urine Culture - Final Klebsiella Pneumoniae 03/12/19 10:50 Blood - Peripheral Venous Blood Culture - Preliminary NO GROWTH OBTAINED AFTER 48 HOURS, INCUBATION TO CONTINUE FOR 3 DAYS. 03/12/19 10:50 Blood - Peripheral Venous Blood Culture - Preliminary NO GROWTH OBTAINED AFTER 48 HOURS, INCUBATION TO CONTINUE FOR 3 DAYS. a/p fevers resolved klebsiella UTI day #3 ceftriaxone will switch to po keflex 500 bid to complete 10 days dizziness- per neurology and cardiology niddm- with elevated glucose per PMD htn- management per pmd please call back if needed
--- NOTE | 2019-03-14 16:09 | PN ---
Progress Note, Physician History of Present Illness: Vertigo, nausea and emesis resolving, still some ataxia. - Current Medication List Current Medications: Active Medications Aspirin (Asa -) 81 mg PO DAILY [facility] Last Admin: 03/14/19 09:32 Dose: 81 mg Cephalexin HCl (Keflex -) 500 mg PO TID [facility] Glimepiride (Amaryl -) 4 mg PO DAILY@0700 [facility] Last Admin: 03/14/19 06:17 Dose: 4 mg Heparin Sodium (Porcine) (Heparin -) 5,000 unit SQ BID [facility] Last Admin: 03/14/19 09:32 Dose: 5,000 unit Lisinopril (Prinivil) 5 mg PO DAILY [facility] Last Admin: 03/14/19 09:32 Dose: 5 mg Metformin HCl (Glucophage -) 500 mg PO DAILY@0700 [facility] Last Admin: 03/14/19 06:17 Dose: 500 mg Sitagliptin Phosphate (Januvia -) 50 mg PO DAILY@0700 [facility] Last Admin: 03/14/19 06:17 Dose: 50 mg - Objective Vital Signs: Vital Signs Temperature 98.1 F 03/14/19 14:00 Pulse Rate 84 03/14/19 14:00 Respiratory Rate 20 03/14/19 14:00 Blood Pressure 132/77 03/14/19 14:00 O2 Sat by Pulse Oximetry (%) 97 03/14/19 08:12 Constitutional: Yes: No Distress, Calm Neck: Yes: Supple Cardiovascular: Yes: Regular Rate and Rhythm Respiratory: Yes: Regular, CTA Bilaterally Gastrointestinal: Yes: Normal Bowel Sounds, Soft Edema: No Labs: CBC, BMP 03/13/19 06:40 03/14/19 06:05 INR, PTT INR 0.99 (0.83-1.09) 03/12/19 10:50 - ....Imaging EKG: Report Reviewed (Tele:NSR no PAF) Problem List - Problems (1) Vertigo Code(s): R42 - DIZZINESS AND GIDDINESS (2) Ataxia Code(s): R27.0 - ATAXIA, UNSPECIFIED (3) Hypertensive urgency Code(s): I16.0 - HYPERTENSIVE URGENCY (4) Type 2 diabetes mellitus Code(s): E11.9 - TYPE 2 DIABETES MELLITUS WITHOUT COMPLICATIONS Qualifiers: Diabetes mellitus terminal carman insulin use: without terminal carman use Chronic kidney disease stage: stage 2 (mild) (5) Microalbuminuria due to type 2 diabetes mellitus Code(s): E11.29 - TYPE 2 DIABETES MELLITUS W OTH DIABETIC KIDNEY COMPLICATION; R80.9 - PROTEINURIA, UNSPECIFIED (6) Glycosuria Code(s): R81 - GLYCOSURIA Assessment/Plan 03/12/2019 Cat Scan: Report Reviewed (small right frontal subcort. infarct) 03/13/2019 Echo: Normal LV and RV size and fxn, tr TR 1. Vertigo, ataxia, nausea and emesis suspect peripheral vestibulopathy, r/o posterior circulation stroke 2. Hypertensive urgency resolved 3. Type 2 DM with microalbuminuria and glycosuria not at goal Ha1c 8.6% 4. Klebsiella UTI and resolved fevers 5. Hypertriglyceridemia P:1. Repeat brain MRI with Ativan, f/u carotid dopplers, intranet developer negative for PAF thus far 2. Complete abx course per C&S 3. Continue ASA 81 qd, Lisinopril 5 qd with uptitration as tolerated
--- NOTE | 2019-03-14 20:39 | PN ---
Progress Note, Physician - Current Medication List Current Medications: Active Medications Aspirin (Asa -) 81 mg PO DAILY [facility] Last Admin: 03/14/19 09:32 Dose: 81 mg Cephalexin HCl (Keflex -) 500 mg PO TID [facility] Glimepiride (Amaryl -) 4 mg PO DAILY@0700 [facility] Last Admin: 03/14/19 06:17 Dose: 4 mg Heparin Sodium (Porcine) (Heparin -) 5,000 unit SQ BID [facility] Last Admin: 03/14/19 09:32 Dose: 5,000 unit Lisinopril (Prinivil) 5 mg PO DAILY [facility] Last Admin: 03/14/19 09:32 Dose: 5 mg Metformin HCl (Glucophage -) 500 mg PO DAILY@0700 [facility] Last Admin: 03/14/19 06:17 Dose: 500 mg Sitagliptin Phosphate (Januvia -) 50 mg PO DAILY@0700 [facility] Last Admin: 03/14/19 06:17 Dose: 50 mg - Objective Vital Signs: Vital Signs Temperature 98.2 F 03/14/19 18:00 Pulse Rate 77 03/14/19 18:00 Respiratory Rate 20 03/14/19 18:00 Blood Pressure 138/81 03/14/19 18:00 O2 Sat by Pulse Oximetry (%) 97 03/14/19 08:12 Constitutional: Yes: No Distress HENT: Yes: Atraumatic Neck: Yes: Supple Cardiovascular: Yes: Regular Rate and Rhythm Respiratory: Yes: CTA Bilaterally Gastrointestinal: Yes: Normal Bowel Sounds Extremities: Yes: WNL Neurological: Yes: Alert, Oriented Labs: CBC, BMP 03/13/19 06:40 03/14/19 06:05 INR, PTT INR 0.99 (0.83-1.09) 03/12/19 10:50 Problem List - Problems (1) Altered mental status Assessment/Plan: resolved Code(s): R41.82 - ALTERED MENTAL STATUS, UNSPECIFIED (2) UTI (urinary tract infection) Assessment/Plan: on po abx now Code(s): N39.0 - URINARY TRACT INFECTION, SITE NOT SPECIFIED (3) Hyperglycemia due to type 2 diabetes mellitus Code(s): E11.65 - TYPE 2 DIABETES MELLITUS WITH HYPERGLYCEMIA (4) Hypertensive urgency Assessment/Plan: bp stable on meds Code(s): I16.0 - HYPERTENSIVE URGENCY (5) Ataxia Code(s): R27.0 - ATAXIA, UNSPECIFIED (6) CVA (cerebral vascular accident) Assessment/Plan: small R subcortical infarct Code(s): I63.9 - CEREBRAL INFARCTION, UNSPECIFIED
[2019-03-15] MEDS: metFORMIN HCL 500 MG TABLET (FP) PO SCH (06:04)
[2019-03-15] MEDS: sitaGLIPtin PHOSPHATE 50 MG TABLET PO SCH (06:04)
[2019-03-15] MEDS: CEPHALEXIN MONOHYDRATE 500 MG CAPSULE (UD) PO SCH ×3 (06:04→21:50)
[2019-03-15] MEDS: GLIMEPIRIDE 4 MG TABLET (FP) PO SCH (06:04)
--- NOTE | 2019-03-15 07:20 | PN ---
Progress Note (short form) - Note Progress Note: Chief Complaint: Events noted, notes reviewed, denies any dizziness, denies any chest pain or dyspnea History of Present Illness: Seen and examined on telemetry. Events noted, notes reviewed, denies any dizziness, denies any chest pain or dyspnea Evidence of non sustained SVT, no evidence atrial fibrillation - Current Medication List Current Medications Aspirin (Asa -) 81 mg PO DAILY [facility] Last Admin: 03/14/19 09:32 Dose: 81 mg Cephalexin HCl (Keflex -) 500 mg PO TID [facility] Last Admin: 03/15/19 06:04 Dose: 500 mg Glimepiride (Amaryl -) 4 mg PO DAILY@0700 [facility] Last Admin: 03/15/19 06:04 Dose: 4 mg Heparin Sodium (Porcine) (Heparin -) 5,000 unit SQ BID [facility] Last Admin: 03/14/19 22:20 Dose: 5,000 unit Lisinopril (Prinivil) 5 mg PO DAILY [facility] Last Admin: 03/14/19 09:32 Dose: 5 mg Metformin HCl (Glucophage -) 500 mg PO DAILY@0700 [facility] Last Admin: 03/15/19 06:04 Dose: 500 mg Sitagliptin Phosphate (Januvia -) 50 mg PO DAILY@0700 [facility] Last Admin: 03/15/19 06:04 Dose: 50 mg Review of Systems Cardiovascular: As noted above Respiratory: denies: Cough or Sputum Production Gastrointestinal: denies: Nausea, Vomiting, Diarrhea, Constipation or Abdominal Discomfort Musculoskeletal: No Symptoms Reported Endocrine: No Symptoms Reported` - Objective Vital Signs: Last Vital Signs Temp Pulse Resp BP Pulse Ox 98.2 F 80 20 125/73 95 03/15/19 06:00 03/15/19 06:00 03/15/19 06:00 03/15/19 06:00 03/14/19 21:00 Intake & Output 03/12/19 03/13/19 03/14/19 03/15/19 23:59 23:59 23:59 23:59 Intake Total 250 1370 1010 10 Balance 250 1370 1010 10 Weight 185 lb Neck: Supple Negative JVD No Bruit Respiratory: Clear to A&P Bilaterally Cardiovascular: S1 S2 Regular Rate and Rhythm Gastrointestinal: Soft Benign Normal Bowel Sounds Ext: No Edema Labs: CBC, BMP 03/13/19 06:40 03/14/19 06:05 Hepatic Panel Total Bilirubin 0.6 mg/dL (0.2-1) 03/13/19 06:40 AST 12 U/L (15-37) L 03/13/19 06:40 ALT 31 U/L (13-61) 03/13/19 06:40 Alkaline Phosphatase 64 U/L (45-117) 03/13/19 06:40 Albumin 3.8 g/dl (3.4-5.0) 03/13/19 06:40 INR, PTT INR 0.99 (0.83-1.09) 03/12/19 10:50 Assessment/Plan ASSESSMENT: 1. Vertigo, ataxia, nausea and emesis suspect peripheral vestibulopathy, rule out posterior circulation stroke 2. Non sustained SVT 3. HTN/hypertensive urgency resolved 4. DM 5. Hypertriglyceridemia 6. Klebsiella UTI, clinically resolved 7. CKD PLAN: 1. Brain MRI with sedation as per neurology service 2. Recommend the addition of B-Blockers for the above noted non- sustained SVT/ Toprol XL 3. Continue Lisinopril 4. Continue ASA 5. Add Vascepa for management of the above noted hypertriglyceridemia Lan Fernández M.D.
[2019-03-15] MEDS: HEPARIN NA (PORCINE) 5,000 UNITS/ML 1ML VIAL SQ SCH ×2 (10:17→21:50)
[2019-03-15] MEDS: LISINOPRIL 5 MG TABLET (FP) PO SCH (10:17)
[2019-03-15] MEDS: ASPIRIN 81 MG CHEWABLE TABLETS PO SCH (10:17)
[2019-03-15] MEDS: metoPROLOL SUCCINATE 25 MG TAB.SR.24H (FP) PO SCH (13:52)
--- NOTE | 2019-03-15 19:50 | PN ---
Progress Note, Physician - Current Medication List Current Medications: Active Medications Aspirin (Asa -) 81 mg PO DAILY [facility] Last Admin: 03/15/19 10:17 Dose: 81 mg Cephalexin HCl (Keflex -) 500 mg PO TID [facility] Last Admin: 03/15/19 14:20 Dose: 500 mg Glimepiride (Amaryl -) 4 mg PO DAILY@0700 [facility] Last Admin: 03/15/19 06:04 Dose: 4 mg Heparin Sodium (Porcine) (Heparin -) 5,000 unit SQ BID [facility] Last Admin: 03/15/19 10:17 Dose: 5,000 unit Lisinopril (Prinivil) 5 mg PO DAILY [facility] Last Admin: 03/15/19 10:17 Dose: 5 mg Metformin HCl (Glucophage -) 500 mg PO DAILY@0700 [facility] Last Admin: 03/15/19 06:04 Dose: 500 mg Metoprolol Succinate (Toprol Xl -) 25 mg PO DAILY [facility] Last Admin: 03/15/19 13:52 Dose: 25 mg Mrwpa-5-Ayns Ethyl Esters (Lovaza -) 2 gm PO BID [facility] Sitagliptin Phosphate (Januvia -) 50 mg PO DAILY@0700 [facility] Last Admin: 03/15/19 06:04 Dose: 50 mg - Objective Vital Signs: Vital Signs Temperature 98 F 03/15/19 13:53 Pulse Rate 74 03/15/19 18:00 Respiratory Rate 20 03/15/19 18:00 Blood Pressure 138/70 03/15/19 18:00 O2 Sat by Pulse Oximetry (%) 98 03/15/19 09:00 Constitutional: Yes: No Distress HENT: Yes: Atraumatic Neck: Yes: Supple Cardiovascular: Yes: Regular Rate and Rhythm Respiratory: Yes: CTA Bilaterally Gastrointestinal: Yes: Normal Bowel Sounds Extremities: Yes: WNL Neurological: Yes: Alert, Oriented Labs: CBC, BMP 03/13/19 06:40 03/14/19 06:05 INR, PTT INR 0.99 (0.83-1.09) 03/12/19 10:50 Problem List - Problems (1) Altered mental status Assessment/Plan: doing well Code(s): R41.82 - ALTERED MENTAL STATUS, UNSPECIFIED (2) UTI (urinary tract infection) Assessment/Plan: on abx Code(s): N39.0 - URINARY TRACT INFECTION, SITE NOT SPECIFIED (3) Type 2 diabetes mellitus Assessment/Plan: monitor on meds Code(s): E11.9 - TYPE 2 DIABETES MELLITUS WITHOUT COMPLICATIONS Qualifiers: Diabetes mellitus extermination supervisor insulin use: without long-term use Chronic kidney disease stage: stage 2 (mild) (4) Vertigo Assessment/Plan: will get neuro consult mri PT eval Code(s): R42 - DIZZINESS AND GIDDINESS
--- NOTE | 2019-03-15 19:50 | DS ---
Physical Examination Vital Signs: Vital Signs Temperature 98 F 03/15/19 13:53 Pulse Rate 74 03/15/19 18:00 Respiratory Rate 20 03/15/19 18:00 Blood Pressure 138/70 03/15/19 18:00 O2 Sat by Pulse Oximetry (%) 98 03/15/19 09:00 Labs: CBC, BMP 03/13/19 06:40 03/14/19 06:05 Discharge Summary Problems reviewed: Yes Reason For Visit: AMS Current Active Problems Altered mental status (Acute) Ataxia (Acute) CVA (cerebral vascular accident) (Acute) Dizziness (Acute) Fever (Acute) Glycosuria (Acute) Hyperglycemia due to type 2 diabetes mellitus (Acute) Hypertensive urgency (Acute) Lactic acidosis (Acute) Microalbuminuria due to type 2 diabetes mellitus (Acute) Type 2 diabetes mellitus (Acute) UTI (urinary tract infection) (Acute) Vertigo (Acute) Weakness (Acute) Condition: Stable - Instructions Referrals: Roly Saha [Primary Care Provider] - - Home Medications Comprehensive Discharge Medication List: Ambulatory Orders Aspirin [ASA -] 81 mg PO DAILY 03/12/19 Glimepiride 4 mg PO BID 03/12/19 Lisinopril 5 mg PO DAILY 03/12/19 Metformin HCl [Glucophage] 500 mg PO DAILY 03/12/19 Sitagliptin Phos/Metformin HCl [Janumet 50-500 mg Tablet] 1 each PO DAILY Cephalexin Monohydrate [Keflex -] 500 mg PO TID #24 capsule 03/14/19 Metoprolol Succinate [Toprol XL -] 25 mg PO DAILY #30 tab.sr.24h 03/15/19
[2019-03-15] MEDS: OMEGA-3 ACID ETHYL ESTERS (FATTY-ACIDS) 1 GM CAPSULE (FP) PO SCH (21:50)
[2019-03-16] MEDS: GLIMEPIRIDE 4 MG TABLET (FP) PO SCH (06:44)
[2019-03-16] MEDS: CEPHALEXIN MONOHYDRATE 500 MG CAPSULE (UD) PO SCH (06:44)
[2019-03-16] MEDS: metFORMIN HCL 500 MG TABLET (FP) PO SCH (06:44)
[2019-03-16] MEDS: sitaGLIPtin PHOSPHATE 50 MG TABLET PO SCH (06:44)
--- NOTE | 2019-03-16 07:51 | PN ---
Progress Note (short form) - Note Progress Note: Chief Complaint: Events noted, notes reviewed, denies any dizziness, denies any chest pain or dyspnea, awaiting D/C home today History of Present Illness: Seen and examined on telemetry. Events noted, notes reviewed, denies any dizziness, denies any chest pain or dyspnea, awaiting D/C home today Evidence of non sustained SVT, no evidence atrial fibrillation - Current Medication List Current Medications Aspirin (Asa -) 81 mg PO DAILY [facility] Last Admin: 03/16/19 10:18 Dose: 81 mg Cephalexin HCl (Keflex -) 500 mg PO TID [facility] Last Admin: 03/16/19 06:44 Dose: 500 mg Glimepiride (Amaryl -) 4 mg PO DAILY@0700 [facility] Last Admin: 03/16/19 06:44 Dose: 4 mg Heparin Sodium (Porcine) (Heparin -) 5,000 unit SQ BID [facility] Last Admin: 03/16/19 10:18 Dose: Not Given Lisinopril (Prinivil) 5 mg PO DAILY [facility] Last Admin: 03/16/19 10:18 Dose: 5 mg Metformin HCl (Glucophage -) 500 mg PO DAILY@0700 [facility] Last Admin: 03/16/19 06:44 Dose: 500 mg Metoprolol Succinate (Toprol Xl -) 25 mg PO DAILY [facility] Last Admin: 03/16/19 10:18 Dose: 25 mg [id number] Ethyl Esters (Lovaza -) 2 gm PO BID [facility] Last Admin: 03/16/19 10:18 Dose: 2 gm Sitagliptin Phosphate (Januvia -) 50 mg PO DAILY@0700 [facility] Last Admin: 03/16/19 06:44 Dose: 50 mg Review of Systems Cardiovascular: As noted above Respiratory: denies: Cough or Sputum Production Gastrointestinal: denies: Nausea, Vomiting, Diarrhea, Constipation or Abdominal Discomfort Musculoskeletal: No Symptoms Reported Endocrine: No Symptoms Reported` - Objective Vital Signs: Last Vital Signs Temp Pulse Resp BP Pulse Ox 98.4 F 86 20 139/94 96 03/16/19 10:14 03/16/19 10:14 03/16/19 10:14 03/16/19 10:14 03/16/19 09:00 Intake & Output 03/13/19 03/14/19 03/15/19 03/16/19 23:59 23:59 23:59 23:59 Intake Total 1370 1010 440 10 Balance 1370 1010 440 10 Neck: Supple Negative JVD No Bruit Respiratory: Clear to A&P Bilaterally Cardiovascular: S1 S2 Regular Rate and Rhythm Gastrointestinal: Soft Benign Normal Bowel Sounds Ext: No Edema Labs: CBC, BMP 03/13/19 06:40 03/14/19 06:05 Hepatic Panel Total Bilirubin 0.6 mg/dL (0.2-1) 03/13/19 06:40 AST 12 U/L (15-37) L 03/13/19 06:40 ALT 31 U/L (13-61) 03/13/19 06:40 Alkaline Phosphatase 64 U/L (45-117) 03/13/19 06:40 Albumin 3.8 g/dl (3.4-5.0) 03/13/19 06:40 INR, PTT INR 0.99 (0.83-1.09) 03/12/19 10:50 Assessment/Plan ASSESSMENT: 1. Vertigo, ataxia, nausea and emesis suspect peripheral vestibulopathy, rule out posterior circulation stroke 2. Non sustained SVT 3. HTN/hypertensive urgency resolved, not at goal 4. DM 5. Hypertriglyceridemia 6. Carotid stenosis, mild to moderate in severity, asymptomatic 7. Klebsiella UTI, clinically resolved 8. CKD PLAN: 1. Continue Toprol XL and dose titration as needed 2. Continue Lisinopril and dose titration as needed 3. Continue ASA 4. Continue Lovaza for management of the above noted hypertriglyceridemia 5. Advised outpatient followup with cardiology services Lan Fernández M.D.
[2019-03-16 10:15] VITALS: BP 139/94; PULSE 86; TEMP 98.4
[2019-03-16] MEDS: ASPIRIN 81 MG CHEWABLE TABLETS PO SCH (10:18)
[2019-03-16] MEDS: OMEGA-3 ACID ETHYL ESTERS (FATTY-ACIDS) 1 GM CAPSULE (FP) PO SCH (10:18)
[2019-03-16] MEDS: LISINOPRIL 5 MG TABLET (FP) PO SCH (10:18)
[2019-03-16] MEDS: HEPARIN NA (PORCINE) 5,000 UNITS/ML 1ML VIAL SQ SCH (10:18)
[2019-03-16] MEDS: metoPROLOL SUCCINATE 25 MG TAB.SR.24H (FP) PO SCH (10:18)
--- NOTE | 2019-03-16 13:13 | DS ---
Physical Examination Vital Signs: Vital Signs Temperature 98.4 F 03/16/19 10:14 Pulse Rate 86 03/16/19 10:14 Respiratory Rate 20 03/16/19 10:14 Blood Pressure 139/94 03/16/19 10:14 O2 Sat by Pulse Oximetry (%) 96 03/16/19 09:00 Constitutional: Yes: No Distress HENT: Yes: Atraumatic Neck: Yes: Supple Cardiovascular: Yes: Regular Rate and Rhythm Respiratory: Yes: CTA Bilaterally Gastrointestinal: Yes: Normal Bowel Sounds Extremities: Yes: WNL Edema: No Neurological: Yes: Alert, Oriented Labs: CBC, BMP 03/13/19 06:40 03/14/19 06:05 Discharge Summary Problems reviewed: Yes Reason For Visit: AMS Current Active Problems Altered mental status (Acute) Ataxia (Acute) CVA (cerebral vascular accident) (Acute) Dizziness (Acute) Fever (Acute) Glycosuria (Acute) Hyperglycemia due to type 2 diabetes mellitus (Acute) Hypertensive urgency (Acute) Lactic acidosis (Acute) Microalbuminuria due to type 2 diabetes mellitus (Acute) Type 2 diabetes mellitus (Acute) UTI (urinary tract infection) (Acute) Vertigo (Acute) Weakness (Acute) Plan of Treatment: Carotid ultrasound - follow up with Dr. Pritchard Condition: Stable - Instructions Referrals: Lan Fernández MD [Staff Physician] - Roly Saha [Primary Care Provider] - Brandon Pritchard MD [Non Staff, Medical] - Brandon Pritchard DO [Staff Physician] - Disposition: HOME - Home Medications Comprehensive Discharge Medication List: Ambulatory Orders Aspirin [ASA -] 81 mg PO DAILY 03/12/19 Glimepiride 4 mg PO BID 03/12/19 Lisinopril 5 mg PO DAILY 03/12/19 Metformin HCl [Glucophage] 500 mg PO DAILY 03/12/19 Sitagliptin Phos/Metformin HCl [Janumet 50-500 mg Tablet] 1 each PO DAILY Cephalexin Monohydrate [Keflex -] 500 mg PO TID #24 capsule 03/14/19 Metoprolol Succinate [Toprol XL -] 25 mg PO DAILY #30 tab.sr.24h 03/15/19 dc home fu neuro/pmd
== END 2019-03-16 14:07 | disposition home or self-care (01) | DRG 689 ==
LOC: JER 09:47 → JERBED 11:54 → J4W 17:21 → JERBED 17:22 → J4W 18:01
PROVIDERS: ADMIT Internal Medicine; ATTEND Internal Medicine
DX: N39.0 Urinary tract infection, site not specified (principal); I63.89 Other cerebral infarction; E87.2 Acidosis; I47.1 Supraventricular tachycardia; I16.0 Hypertensive urgency; E11.9 Type 2 diabetes mellitus without complications; R27.0 Ataxia, unspecified; R42 Dizziness and giddiness; R41.82 Altered mental status, unspecified; R50.9 Fever, unspecified; B96.1 Klebsiella pneumoniae [K. pneumoniae] as the cause of diseases classified elsewhere; I12.9 Hypertensive chronic kidney disease with stage 1 through stage 4 chronic kidney disease, or unspecified chronic kidney disease; R29.702 NIHSS score 2; N18.2 Chronic kidney disease, stage 2 (mild)
CPT/HCPCS: 36415; 70450-TC; 70551-TC; 71045-TC-FY; 72125-TC; 80048; 80053; 80061; 81003; 82010; 82550; 82803; 82962; 83036; 83605; 83721; 84443; 84484; 85025; 85610; 85730; 87040; 87086; 87186; 93005; 93010; 93306-TC; 93880-TC; 97116-GP; 97162-GP; 99285-25; J0131; J1644; J7030